=== PATIENT | male | born 1970 | race Caucasian/White ===

== ENCOUNTER → 2016-06-13 | Outpatient (CLI) | payer MEDICAID ==
--- NOTE | 2016-06-13 16:27 | RADIOLOGY REPORT PS360 ---
KNEE-3 VIEWS-LT HISTORY: LEFT KNEE PAIN ORDERING PHYSICIAN: Malick Padilla MD PATIENT AGE: 46 years COMPARISON: None FINDINGS: No fracture or dislocation. No lytic or blastic change. Normal mineralization. No significant arthritic changes evident. Ununited apophysis noted at the tibial tuberosity but does not appear displaced or fragmented IMPRESSION: No acute finding, essentially negative left knee
== END ==
LOC: RAD 15:53
DX: M25.562 Pain in left knee (principal)

== ENCOUNTER → 2016-10-30 | Outpatient (CLI) | payer MEDICAID ==
[~2016-10-30] MED LIST: KEFLEX 500MG.500 MG PO
[2016-10-30 14:24] LABS: HEMOGLOBIN 11.7 g/dL (14.1-18.0); LYMPH # 2.5 K/mm3 (0.7-4.5); LYMPH % 39.7 % (10-50)
[2016-10-30 15:57] LABS: BUN 15 mg/dL (7-18)
[2016-10-30 16:13] LABS: GFR (ESTIMATED) 72 ML/MIN (>60)
== END ==
LOC: RT 13:42
PROVIDERS: Surgery
DX: K64.9 Unspecified hemorrhoids (principal); K64.8 Other hemorrhoids; Z01.810 Encounter for preprocedural cardiovascular examination; Z01.811 Encounter for preprocedural respiratory examination; Z01.812 Encounter for preprocedural laboratory examination